=== PATIENT | male | born 1995 | race Caucasian/White ===

== ENCOUNTER 2019-04-06 12:59 | Emergency (ER) | payer OTHER ==
[~2019-04-06] VITALS: Ht 180.3 cm; Wt 80.0 kg
[2019-04-06] MEDS ORDERED: TETanus/Pertussis (Acell)/Diphther VAC/PF (Tdap-Adult) 0.5ml syringe IMVAC ONE (13:05)
[2019-04-06] MEDS ORDERED: LIDOcaine 1% w/EPI 1:200,000 injection 10mL vial IM ONE (13:05)
[2019-04-06] MEDS ORDERED: LIDOcaine 1% W/epiNEPHrine 1:200,000 10ml vial IJ ONE (13:10)
[2019-04-06] MEDS ORDERED: LIDOcaine 1% w/epiNEPHrine 1:200,000 30ml vial IJ ONE (13:10)
[2019-04-06] MEDS ORDERED: CLIN-90 PO (13:47)
[2019-04-06 14:08] VITALS: BP 106/59
== END 2019-04-06 14:13 | disposition home or self-care (01) ==
LOC: ER 12:59
DX: S91.312A Laceration without foreign body, left foot, initial encounter (principal); Z88.0 Allergy status to penicillin; Z79.899 Other long term (current) drug therapy; W27.8XXA Contact with other nonpowered hand tool, initial encounter; Y93.89 Activity, other specified; Y92.89 Other specified places as the place of occurrence of the external cause; Y99.8 Other external cause status
CPT/HCPCS: 12002; 73630; 99283

== ENCOUNTER 2021-09-06 22:03 | Emergency (ER) | payer OTHER ==
[~2021-09-06] VITALS: Ht 170.2 cm; Wt 68.2 kg
[~2021-09-06 22:03] MED LIST: CLIN-97 PO
[2021-09-06 22:06] VITALS: BP 128/83
== END 2021-09-07 00:22 | disposition home or self-care (01) ==
LOC: ER 22:03
DX: S61.411A Laceration without foreign body of right hand, initial encounter (principal); Z88.0 Allergy status to penicillin; Z88.1 Allergy status to other antibiotic agents; Z79.2 Long term (current) use of antibiotics; W45.8XXA Other foreign body or object entering through skin, initial encounter; Y93.89 Activity, other specified; Y92.89 Other specified places as the place of occurrence of the external cause; Y99.8 Other external cause status
CPT/HCPCS: 12002; 99282

== ENCOUNTER 2021-09-20 21:15 | Emergency (ER) | payer MEDICAID, OTHER ==
[~2021-09-20] VITALS: Ht 170.2 cm; Wt 68.2 kg
[2021-09-20 21:17] VITALS: BP 153/105
[2021-09-20] MEDS ORDERED: oxyCODONE/APAP 5-325mg tablet PO ONE (23:05)
[2021-09-20] MEDS ORDERED: rifampin 300mg capsule PO SCH (23:10)
[2021-09-20] MEDS ORDERED: RIFA300C9 PO (23:13)
[2021-09-20] MEDS ORDERED: dexamethasone sod phosphate 10mg/ml inj IM STA (23:14)
[2021-09-21] MEDS ORDERED: rifampin 300mg capsule PO SCH (08:00)
== END 2021-09-20 23:31 | disposition home or self-care (01) ==
LOC: ER 21:16
DX: K04.7 Periapical abscess without sinus (principal); F17.200 Nicotine dependence, unspecified, uncomplicated; Z88.0 Allergy status to penicillin; Z88.1 Allergy status to other antibiotic agents; Z79.899 Other long term (current) drug therapy
CPT/HCPCS: 96372; 99283; J1100

== ENCOUNTER 2024-04-04 15:48 | Emergency (ER) | payer MEDICAID, OTHER ==
[~2024-04-04] VITALS: Ht 167.6 cm; Wt 75.0 kg
[~2024-04-04 15:48] MED LIST changes: +RIFA300C65 PO
[2024-04-04 15:50] VITALS: BP 121/66; PULSE 68; RESP 16; TEMP 97.5; O2SAT 99
== END 2024-04-04 16:44 | disposition home or self-care (01) ==
LOC: ER 15:48
DX: S61.217A Laceration without foreign body of left little finger without damage to nail, initial encounter (principal); Z88.0 Allergy status to penicillin; Z88.1 Allergy status to other antibiotic agents; W26.8XXA Contact with other sharp object(s), not elsewhere classified, initial encounter; Y93.89 Activity, other specified; Y92.89 Other specified places as the place of occurrence of the external cause; Y99.8 Other external cause status
CPT/HCPCS: 12001; 99282; A6258